=== PATIENT | male | born 1960 | race Caucasian/White ===

== ENCOUNTER 2024-05-15 01:39 | Day surgery (SDC) | payer OTHER, SELFPAY ==
[2024-05-14 16:46] VITALS: BMI 29.2
[2024-05-15] VITALS (20 sets, daily range): BP systolic 123–157; BP diastolic 64–93; PULSE 74–92; RESP 13–23; TEMP 36.6; O2SAT 94–99
[2024-05-15 08:53] LABS: Basophils Absolute Auto 0.1 K/mm3 (0.0-0.1); Basophils Percent Auto 1.3 % (0.2-1.2); Eosinophils Absolute Auto 0.2 K/mm3 (0-0.3); Eosinophils Percent Auto 3.4 % (0-4.4); Hematocrit 45.5 % (42.0-52.0); Hemoglobin 15.2 g/dL (14.0-18.0); Immature Granulocyte Absolute 0.02 K/mm3 (0.00-0.031); Immature Granulocyte Percent A 0.3 % (0-0.5); Lymphocytes Absolute Auto 1.63 K/mm3 (0.9-3.2); Lymphocytes Percent Auto 26.2 % (18.3-44.2); Mean Corpuscular HGB Conc 33.4 g/dl (32-36); Mean Corpuscular Hemoglobin 30.8 pg (26-34); Mean Corpuscular Volume 92.1 fl (80-100); Mean Platelet Volume 9.5 fl (7.4-10.4); Monocytes Absolute Auto 0.5 K/mm3 (0.1-0.6); Monocytes Percent Auto 8.5 % (2.6-8.5); Neutrophils Absolute Auto 3.7 K/mm3 (1.3-6.7); Neutrophils Percent Auto 60.3 % (45.5-73.1); Platelet Count Result 145 k/mm3 (150-375); Red Blood Count 4.94 M/mm3 (4.6-6.20); Red Cell Distribution Width 14.2 % (11.5-14.5); White Blood Count 6.2 K/mm3 (4.5-10.0)
--- NOTE | 2024-05-15 09:05 | WPDMODSED ---
Moderate Sedation Note-Pt Data Patient Data Diagnosis: Exertional fatigue/dyspnea Abnormal nuclear stress test Present Complaint: KOVACS Procedure to be performed/Plan: Left heart catheterization Allergies Allergy/AdvReac Type Severity Reaction Status Date / Time meperidine [From Demerol] AdvReac Hallucinati Verified 05/15/24 08:40 ng Home Medications Medication Instructions Recorded Confirmed Type aspirin 81 mg tablet,delayed 81 mg PO DAILY 05/14/24 05/14/24 History release atorvastatin 20 mg tablet 20 mg PO DAILY 05/14/24 05/14/24 History cyclobenzaprine 10 mg tablet 10 mg PO TID PRN Pain 05/14/24 05/14/24 History gabapentin 400 mg capsule 400 mg PO HS 05/14/24 05/14/24 History hydrochlorothiazide 25 mg tablet 25 mg PO DAILY 05/14/24 05/14/24 History hydrocodone 5 mg-acetaminophen 325 5 tablet PO QID PRN Pain 05/14/24 05/14/24 History mg tablet icosapent ethyl 1 gram capsule 2 g PO BID 05/14/24 05/14/24 History (Vascepa) losartan 25 mg tablet 25 mg PO HS 05/14/24 05/14/24 History metformin 500 mg tablet,extended 1,000 mg PO DAILY 05/14/24 05/14/24 History release 24 hr pramipexole 0.5 mg tablet 0.5 mg PO BID 05/14/24 05/14/24 History semaglutide 0.25 mg or 0.5 mg (2 0.5 mg subcut WEEKLY 05/14/24 05/14/24 History mg/3 mL) subcutaneous pen injector (Ozempic) tamsulosin 0.4 mg capsule 0.4 mg PO DAILY 05/14/24 05/14/24 History Sedation/Anesthesia: No previous sedation/anesthesia problems (including family history). [facility] Social History Social History Smoking status: Never smoker Alcohol intake: current Drinks per week: 1 Substance use type: does not use Living arrangements: with family Spiritual care concerns: No Mod Sed Physical Exam Physical Exam Pre Procedural Exam: Normal: Appearance, Neck, Throat, Airway, Lungs, Heart Size, Heart Rate, Heart Rhythm, Neuro Exam and Extremities Hours since solid foods: 12 Hours since liquid intake: 12 Mallampati Classification: class II Internal Medicine - PN: Obj Da Vital Signs Vital Signs: Vital Signs - 24 hr 05/15/24 08:42 Temperature 36.6 C Pulse Rate 87 Respiratory Rate 23 H Blood Pressure 125/80 Pulse Oximetry 97 Oxygen Delivery Room Air Labs 05/15/24 08:46 05/15/24 08:46 Labs: Laboratory Results - last 24 hr 05/15/24 08:46 WBC 6.2 RBC 4.94 Hgb 15.2 Hct 45.5 MCV 92.1 MCH 30.8 MCHC 33.4 RDW 14.2 Plt Count 145 L MPV 9.5 Immature Gran % (Auto) 0.3 Neut % (Auto) 60.3 Lymph % (Auto) 26.2 Leslie % (Auto) 8.5 Eos % (Auto) 3.4 Baso % (Auto) 1.3 H Lymph # (Auto) 1.63 Leslie # (Auto) 0.5 Eos # (Auto) 0.2 Baso # (Auto) 0.1 Abs Immat Gran (auto) 0.02 Absolute Neuts (auto) 3.7 Absolute Nucleated RBC 0.000 Nucleated RBC % 0.0 ASA Classification/Sedation ASA Classification/Sedation ASA Class: II Emergent: No Risks: Risks, benefits and alternatives explained and patient/family accepted plan for sedation. Patient re-evaluated immediately prior to sedation.
--- NOTE | 2024-05-15 09:06 | PM.IMHP ---
H&P: HPI History of Present Illness Date/Time: 05/15/24 09:06 Chief Complaint: KOVACS Narrative: This is a 63-year-old patient and not previously known to have significant coronary disease who is admitted today as an outpatient for left heart catheterization. The study has been recommended by my partner sees in the office because of symptoms of exertional shortness of breath and a recent nuclear stress test which was found to be abnormal suggesting anterior ischemia. The patient has previously undergone coronary angiography to investigate dyspnea which demonstrated no significant coronary disease. He was seen in the office reporting persistently low energy levels some shortness of breath with exertion a prompting repeat ischemia evaluation. He has a history of diabetes, prostate hypertrophy and obstructive sleep apnea with CP Review of Systems Constitutional: Constitutional: Reports lethargy Eyes: Eyes: Reports no additional eye complaints ENT: Reports system reviewed and no additional complaints, except as documented Cardiovascular: Cardiovascular: Reports as per HPI Respiratory: Respiratory: Reports dyspnea on exertion Gastrointestinal: Gastrointestinal: Reports no additional gastrointestinal complaints Musculoskeletal: Musculoskeletal: Reports no additional musculoskeletal complaints Integumentary/Breasts: Skin/Breast: Reports system reviewed and no additional complaints, except as docu Neurologic: Reports system reviewed and no additional complaints, except as documented [facility] Social History Social History Smoking status: Never smoker Alcohol intake: current Drinks per week: 1 Substance use type: does not use Living arrangements: with family Spiritual care concerns: No Meds Home Medications and Allergies Home Medications Medication Instructions Recorded Confirmed Type aspirin 81 mg tablet,delayed 81 mg PO DAILY 05/14/24 05/14/24 History release atorvastatin 20 mg tablet 20 mg PO DAILY 05/14/24 05/14/24 History cyclobenzaprine 10 mg tablet 10 mg PO TID PRN Pain 05/14/24 05/14/24 History gabapentin 400 mg capsule 400 mg PO HS 05/14/24 05/14/24 History hydrochlorothiazide 25 mg tablet 25 mg PO DAILY 05/14/24 05/14/24 History hydrocodone 5 mg-acetaminophen 325 5 tablet PO QID PRN Pain 05/14/24 05/14/24 History mg tablet icosapent ethyl 1 gram capsule 2 g PO BID 05/14/24 05/14/24 History (Vascepa) losartan 25 mg tablet 25 mg PO HS 05/14/24 05/14/24 History metformin 500 mg tablet,extended 1,000 mg PO DAILY 05/14/24 05/14/24 History release 24 hr pramipexole 0.5 mg tablet 0.5 mg PO BID 05/14/24 05/14/24 History semaglutide 0.25 mg or 0.5 mg (2 0.5 mg subcut WEEKLY 05/14/24 05/14/24 History mg/3 mL) subcutaneous pen injector (Ozempic) tamsulosin 0.4 mg capsule 0.4 mg PO DAILY 05/14/24 05/14/24 History Allergies Allergy/AdvReac Type Severity Reaction Status Date / Time meperidine [From Demerol] AdvReac Hallucinati Verified 05/15/24 08:40 ng Vital Signs Vital Signs - 24 hr 05/15/24 08:42 Temperature 36.6 C Pulse Rate 87 Respiratory Rate 23 H Blood Pressure 125/80 Pulse Oximetry 97 Oxygen Delivery Room Air Exam Const: General: comfortable and no acute distress Other: Well-developed well-nourished white male appearing his stated age no distress HENMT: Face/Nose/Sinus: Normal nares present Mouth: Yes moist mucous membranes Eyes: Sclera: sclerae normal Neck: Neck: supple and no JVD Resp: Effort & Inspection: normal respiratory effort Auscultation: clear to auscultation bilaterally Cardio: Rate: regular rate Rhythm: regular rhythm GI: GI Palp: Yes Soft to palpation Auscultation: normal bowel sounds Skin: General skin exam: normal color Neuro: Other: Alert and oriented x3 Extrem: Other: No edema, adequate pulses H&P: Results Labs Labs: Short CBC 05/15/24 Range/Units 08:46 WBC 6.2 (4.5-10.0) K/
[2024-05-15 09:10] LABS: Anion Gap 11 mmol/L (4-12); Blood Urea Nitrogen 19 mg/dL (9-20); Calcium 8.9 mg/dL (8.4-10.2); Carbon Dioxide 30 mmol/L (22-30); Chloride 99 mmol/L (98-107); Estimated CRCL calculation 90 ml/min; Estimated Glomerular Filt Rate > 60; Glucose 174 mg/dL (65-110); Potassium 3.3 mmol/L (3.4-5.0); Sodium 140 mmol/L (137-145)
--- NOTE | 2024-05-15 10:57 | WPDCARDPROC ---
Cardiac Cath Procedure Note Date of procedure:: 05/15/24 Performing physician:: Rohit Paerdes MD Indication:: This is a 63-year-old man with a history of angiographically modest coronary disease seen in 2014 who is undergoing follow-up angiography today because of worsening symptoms of KOVACS and a nuclear stress test indicating evidence of anterior ischemia Brief clinical history:: as above Procedure Procedure performed:: left ventriculogram coronary angiogram Sedation/Medication given:: fentanyl 50 mg Versed 2 mg start time 10:24 a.m. case end time 10:52 a.m. sedation provided by Pauline Dalton RN, trained observer Access site:: right femoral artery Estimated blood loss:: 20 cc Procedure note:: patient was brought to the cardiac catheterization lab in the postabsorptive state where the right femoral triangle was prepped draped in the usual fashion. Anesthesia was given with 1% lidocaine modified technique puncture and a 5 [place] vascular sheath was placed. There was some iliac artery tortuosity that cause some resistance in excess the central aorta. I then used a JR4 catheter with a Karlee wire to access the central aorta. With the JR catheter then I attempted to the right coronary artery. Because of the tortuosity described above torquing the catheter was very difficult and I then exchanged over the guidewire for a 23 cm 6 [place] sheath. With the guidewire still in place I then used a 5 [place] angled pigtail catheter access the left ventricle left-sided hemodynamics and perform a left BUTT projection. Following this over the guidewire exchanged for a 5 [place] FL4 catheter engaged inject the left coronary artery in multiple projections. After this the right coronary was engaged and injected using the 5 [place] JR4 catheter. With the long sheath in place there was no difficulty intubating the RCA with this catheter. Cineangiograms were then reviewed and the case was terminated an angiogram was done of the femoral artery through the sheath after which I elected to have sheath removed with direct manual compression. Procedure was well tolerated and uncomplicated there was no evidence of a groin hematoma upon leaving the cardiac catheterization lab. Findings:: Hemodynamics: The central aortic pressure is 120 over 66 left ventricle 120/5 end-diastolic there is no gradient pullback across the aortic valve. Left ventricle: The LV is normal in size there is mild global hypokinesia identified with an ejection fraction of 45 to 50%. The left main coronary artery is medium in caliber and is patent the left anterior descending is a medium caliber artery with significant proximal stenosis of 80%. The stenosis is eccentric and not visible in all angiographic projections also because of overlap with the circumflex and high OM branch. The remainder of the LAD is medium in caliber but without significant disease. The circumflex is a large caliber vessel the 1st OM branch takes off very high and has an ostial 99% stenosis. The proximal circumflex trunk has mild stenosis of about 30-40%. The remainder of the circumflex is free of significant disease. The right coronary artery is large in caliber and dominant to the posterior circulation. There is significant proximal calcification of the RCA. There is a proximal fairly discrete 90% stenosis in the RCA remainder of the vessel is nicely patent. There is mild non flow-limiting disease in the RPL branch. Conclusion:: 1. Right coronary dominant circulation multivessel coronary disease including 80% stenosis of the proximal LAD, 99% stenosis in the ostium of the 1st OM branch and 90% stenosis in the proximal large dominant RCA. 2. Mild global left ventricular systolic dysfunction with normal hemodynamics. Rohit Paredes MD FACC
[2024-05-15] MEDS: SODIUM CHLORIDE 0.9% IV 500 ML 125 ML (13:01)
== END 2024-05-15 19:26 | disposition home or self-care (01) ==
LOC: ANHCATHLAB 16:15 → ANHICU 17:08
PROVIDERS: PCP Family Medicine; Visit Provider Specialist
PROC: 4A023N7 Measurement of Cardiac Sampling and Pressure, Left Heart, Percutaneous Approach (ICD-10-PCS; CPT 93452; principal; 2024-05-15 10:00)
DX: I25.10 Atherosclerotic heart disease of native coronary artery without angina pectoris (principal); R94.39 Abnormal result of other cardiovascular function study; E11.9 Type 2 diabetes mellitus without complications; G47.33 Obstructive sleep apnea (adult) (pediatric); Z79.82 Long term (current) use of aspirin; Z79.891 Long term (current) use of opiate analgesic; Z79.84 Long term (current) use of oral hypoglycemic drugs; Z79.85 Long-term (current) use of injectable non-insulin antidiabetic drugs; Z99.89 Dependence on other enabling machines and devices
CPT/HCPCS: 36415; 80048; 85025; 93458; A9270; C1769; C1887; C1894; J0461; J1644; J2250; J3010; J7040